=== PATIENT | male | born 1990 | race African-American/Black ===

== ENCOUNTER 2016-09-06 21:20 | Emergency (ER) | payer BC, OTHER ==
--- NOTE | ~2016-09-06 | CT4 ---
[facility] A Service of [facility] RADIOLOGY TEXT RESULTS PATIENT: ANGEL CHRISTIE LOCATION: SED : [birth year] UNIT #: [id number] AGE: [address]: Donald Painter MD SEX: M ORDER DR: [id number] [address] [id number] [id number] MR#: [id number] Acc #: [id number] NAME: ANGEL CHRISTIE : 1990 SEX: M STUDY DATE/TIME: 09/06/2016 21:17 UNIT: SED ROOM: STUDY DESCRIPTION: CT Abd and Pelv Wo Cont Attending Physician: Donald Painter M.D. Ordering Physician: Donald Painter M.D. Primary Care Physician: Primary Care Physician No MEDICAL IMAGING REPORT This report is preliminary unless electronic signature is present. EXAM CT abdomen and pelvis without IV contrast COMPARISON May 10, 2012. INDICATIONS 25-year-old male with intermittent right side abdominal pain for months and hematuria for [address] imaging of the abdomen and pelvis was performed without IV contrast. Coronal and sagittal reformats were constructed. This CT exam was performed with one or more of the following radiation dose reduction techniques: Automatic exposure control, adjustment of mA and/or kV according to patient size, and iterative reconstruction. Lack of IV contrast limits evaluation of adenopathy, vasculature and viscera. Evaluation of the mid abdomen to the pelvis is limited by motion. No acute fractures or suspicious osseous lesions. No acute findings in the lower chest. Gallbladder is markedly contracted. No radiopaque cholelithiasis. No findings of acute cholecystitis. Unenhanced liver, pancreas, spleen, adrenal glands and kidneys are unremarkable. There are no renal calculi. No evidence of ureteral calculus. No calculus within the urinary bladder or visualized penile urethra. There are bilateral pelvic phleboliths. No evidence of acute appendicitis. No bowel obstruction. Abdominal aorta is normal in course and caliber. No free fluid or pneumoperitoneum. No evidence of adenopathy. IMPRESSION 1. No acute abnormality. No evidence of renal or ureteral calculus. 2. Bilateral pelvic phleboliths. STS. [facility] A Service of [facility] RADIOLOGY TEXT RESULTS PATIENT: ANGEL CHRISTIE LOCATION: SED : 90 UNIT #: [id number] AGE: [address]: Donald Painter MD SEX: M ORDER DR: Dictated by... Miller Thompson M.D. THIS IS AN ELECTRONICALLY VERIFIED REPORT Miller Thompson M.D. at 09/07/2016 3:45 PM ACACIA/evelyn TD: 09/07/2016 00:05 JOB #: [id number] MEDICAL IMAGING REPORT Page 1 of 1
[~2016-09-06 21:20] MED LIST: ADDERALL; BACTRIM DS TABL1 TA1 PO; CIPRO PO; DICLOFENAC PO; FLEXERIL PO; NO MEDICATIONS; PRILOSEC20 M1 PO; ULTRAM PO; ZANTAC150 MG PO
[2016-09-06 21:31] LABS: URINE SOURCE CLEAN CATCH
[2016-09-06 21:34] LABS: MICRO INDICATED? NO; URINE APPEARANCE CLEAR; URINE BILIRUBIN NEG (NEG); URINE BLOOD NEG (NEG); URINE COLOR YELLOW; URINE GLUCOSE NEG (NORM); URINE KETONE NEG (NEG); URINE LEUKOCYTE ESTERASE NEG (NEG); URINE NITRATE NEG (NEG); URINE PH 6.5 (5-8); URINE PROTEIN NEG (NEG)
[2016-09-08 20:18] LABS: CHLAMYDIA TRACH Not Detected (Not Detected); N GONOR Not Detected (Not Detected)
== END 2016-09-06 22:54 | disposition home or self-care (01) ==
LOC: SED 21:20
PROVIDERS: Emergency Medicine
DX: R31.0 Gross hematuria (principal); F17.200 Nicotine dependence, unspecified, uncomplicated; Z79.899 Other long term (current) drug therapy
CPT/HCPCS: 74176; 81003; 87491; 87591; 99284